=== PATIENT | female | born 1990 | race Caucasian/White ===

== ENCOUNTER 2025-02-18 15:59 | Emergency (ER) | payer BC, SELFPAY ==
[2025-02-18 16:01] VITALS: BP 131/80; PULSE 93; RESP 16; TEMP 37.1; O2SAT 99; BMI 27.7
--- NOTE | 2025-02-18 16:21 | EDS_ITS ---
HPI History of Present Illness Chief Complaint: General Illness Detail of Chief Complaint: Temperature 100 ?F, and UTI symptoms Informant: patient Onset/Context/Timing Onset: Today Context: Sudden Onset Timing: Intermittent Quality: Chills this morning, temperature 100.0 ?F and urinary symptoms Location: Current Severity: Mild Maximum Severity: Moderate Worsened by: Urination Relieved by: Nothing Associated Symptoms Associated Symptoms: Headache and nausea Narrative Narrative: Patient is a 34-year-old Ab2 (spontaneous) female who is 36 weeks gestation and presents because of temperature of 100.0 ?F. She took Tylenol which alleviated her fever however she still complains of headache. She does endorse frequency compared to normal, dysuria and urgency. She has not noted any blood in her urine. She denies back or flank pain. She has had no vomiting. Her OB is affiliated with the [facility]. Patient has no antibiotic allergies. She has no significant past medical history. Prior similar symptoms: No Recent Illness/Hospitalization: No PFSH PFSH Home Medications ?Medication ?Instructions ?Recorded ?Last Taken ?Type aspirin 81 mg tablet,delayed 81 mg PO DAILY 02/18/25 U nknown History release cephalexin 500 mg capsule 500 mg PO Q6 #40 CAPSULES Unknown Rx Allergy/AdvReac Type Severity Reaction Status Date / Time No Known Allergies Allergy Verified 02/18/25 16:03 [facility] ED Constitutional Constitutional ED: Reports chills, fever(s), sweats and other Details: Chills this morning prior to elevated temperature. ; Denies subjective or weight loss Eyes Eyes: Denies blurry vision or change in vision Cardiovascular Cardiovascular: Denies chest pain or palpitations Respiratory/Chest Respiratory/Chest: Denies cough, dyspnea or dyspnea on exertion Gastrointestinal Gastrointestinal: Reports abdominal pain and nausea; Denies constipation, diarrhea, melena or vomiting Genitourinary Genitourinary ED: Reports dysuria and urinary frequency; Denies hematuria Musculoskeletal Musculoskeletal: Denies arthralgias, back pain or myalgias Hematologic/Lymphatic Hematologic/Lymphatic: Reports systems reviewed and no addt'l complaints, except as documented EXAM Physical Exam Const Vital Signs: 02/18/25 16:00 02/18/25 16:01 Temperature 98.8 F Temperature Source Oral Pulse Rate 93 Respiratory Rate 16 Respiratory Effort Normal Non-Labored Respiratory Pattern Normal Blood Pressure 131/80 H Blood Pressure Mean 97 Pulse Ox 99 Oxygen Delivery Method Room Air Positive well nourished and well developed General Appearance ED: well developed and NAD; Negative for cyanotic, diaphoretic or pallor HEENT Reports moist mucous membranes HEENT Narrative: Head is atraumatic normocephalic. Ears normal. Nares patent Eyes PERRL and EOMs intact bilaterally General Eye ED: Negative for pale conjunctiva or scleral icterus Neck no lymphadenopathy, supple and no JVD Resp normal respiratory effort and clear to auscultation bilaterally Cardio regular rate, regular rhythm, S1 normal heart sound, S2 normal heart sound and no murmurs GI normal to inspection, nondistended, normoactive bowel sounds, non-distended and no masses; Negative for non-tender or hepatosplenomegaly Auscultation: normoactive bowel sounds Palpation: soft and tender suprapubic Back/Spine no CVA tenderness Extremity normal to inspection Neuro oriented x3 and CN's II-XII intact bilaterally Sensorium / Orientation: alert Psych mental status grossly normal Skin no rashes or lesions noted, no wounds and skin turgor normal General Skin Exam: Negative for jaundice or pallor MDM MDM MDM Narrative Medical decision making narrative: Patient with urinary symptoms. UA was obtained. Since he is we will obtain urine culture. Blood work was obtained to assess white count differential and if there is any endorgan dysfunction. Will contact her OB if she does have an infection since she is 36 weeks gestation. Lab Data Labs: Laboratory Results - last 24 hr 02/18/25 02/18/25 16:18 16:40 WBC 8.3 RBC 3.85 L Hgb 12.3 Hct 34.8 L MCV 90.4 MCH 31.9 MCHC 35.3 RDW Std Deviation 40.9 RDW Coeff of Pasha 12.6 Plt Count 241 MPV 9.3 Immature Gran % (Auto) 0.500 Neut % (Auto) 84.7 H Lymph % (Auto) 7.2 L Rice % (Auto) 7.3 Eos % (Auto) 0.1 Baso % (Auto) 0.2 Absolute Neuts (auto) 7.0 Absolute Lymphs (auto) 0.59 L Nucleated RBC % 0 Sodium 133 Potassium 4.1 Chloride 104 Carbon Dioxide 16.7 L Anion Gap 13 BUN 19 Creatinine 0.67 L Estim Creat Clear Calc 105.49 Est GFR (MDRD) Non-Af 116 BUN/Creatinine Ratio 28.5 H Glucose 109 H Calcium 8.9 Total Bilirubin 1.05 AST 35 H ALT 23 Alkaline Phosphatase 134 H Total Protein 6.1 Albumin 3.2 L Globulin 2.9 Albumin/Globulin Ratio 1.1 Urine Color Yellow Urine Clarity Cloudy Urine pH 6.0 Ur Specific [place] 1.025 Urine Protein 30 H Urine Glucose (UA) Normal Urine Ketones 15 H Urine Occult Blood Negative Urine Nitrite Negative Urine Bilirubin Negative Urine Urobilinogen Normal Ur Leukocyte Esterase Negative Urine RBC 0-5 SEEN Urine WBC 0-5 SEEN Ur Squamous Epith Cells 0-5 SEEN Calcium Oxalate Crystal 1+ Amorphous Sediment 1+ Urine Bacteria 2+ Urine Mucus 0 SEEN Treatment and Re-Evaluation :: Patient was informed of results. She was discharged prescription for cephalexin. She was instructed follow-up with her doctor if no improvement in 48 hours. Discharge Plan Triage Chief Complaint: General Illness ED Provider: David Moraes Dx/Rx/DC Orders Clinical Impression: Complicated urinary tract infection, Third trimester , Elevated blood- pressure reading without diagnosis of hypertension Instructions: ED Urinary Retention, Female Prescriptions: New cephalexin 500 mg capsule 500 mg PO Q6 Qty: 40 0RF No Action aspirin 81 mg tablet,delayed release (DR/EC) 81 mg PO DAILY Primary Care Provider: Care Physician,No Primary Referrals: Jocelyn Pierce MD [Med Staff - Active Staff] - 3-5 Days Care Physician,No Primary [Primary Care Provider] - Print Language: Turkmen Disposition Disposition: Home, Self Care
[2025-02-18 16:40] LABS: Hematocrit 34.8 % (37-47); Hemoglobin 12.3 g/dL (12.0-15.0); Immature Granulocytes Count 0.040 X10^3/uL (0.0-0.0); Mean Corp Hgb Conc 35.3 g/dL (32-36); Mean Corpuscular Volume 90.4 fL (81-99); Mean Platelet Vol. 9.3 fl (6.2-12.0); NRBC Flagged by Analyzer 0 % (0-5); POSITIVE DIFFERENTIAL YES; Platelet Count 241 K/mm3 (150-450); RBC Distribution Width CV 12.6 % (11.6-14.6); RBC Distribution Width SD 40.9 fl (35.1-43.9); Red Blood Count 3.85 M/mm3 (4.2-5.4); White Blood Count 8.3 K/mm3 (4.4-11.0)
[2025-02-18 16:48] LABS: Mucous, Urine 0 SEEN /hpf (<or=2+)
[2025-02-18 16:57] LABS: Color, Urine Yellow (Yellow); Glucose, Dipstick Normal (Normal); Ketone-Dipstick 15 mg/dl (Negative); Leukocyte Esterase-Dipstick Negative /ul (Negative); Nitrite-Dipstick Negative (Negative); Occult Blood-Urine Negative /ul (Negative); Protein-Dipstick 30 mg/dl (Negative); Specific Gravity, Urine 1.025 (1.002-1.030); Urine Bilirubin Dipstick Negative (Negative)
[2025-02-18 17:22] LABS: AST(SGOT) 35 U/L (<=31); Alanine Aminotransfer ALT/SGPT 23 U/L (<=34); Albumin, Serum 3.2 g/dL (3.5-5.0); Alkaline Phosphatase 134 U/L (35-104); Anion Gap 13 (5-15); BUN 19 mg/dL (4-19); BUN/Creat Ratio 28.5 RATIO (10-20); Calcium,Total 8.9 mg/dL (7.6-11.0); Carbon Dioxide 16.7 mmol/L (21.0-32.0); Chloride 104 mmol/L (98-108); Estimated Creatinine Clearance 105.49 ml/min (50-250); Globulin 2.9 g/dL (2.2-4.2); Glucose 109 mg/dL (70-99); Potassium 4.1 mmol/L (3.3-5.1)
[2025-02-18 17:51] LABS: Squamous Epithelial Cells - UA 0-5 SEEN /hpf (5-10)
[2025-02-18 17:53] LABS: Calcium Oxalate Crystals Ur 1+ /hpf (<or=2+); Red Blood Cells-Urine 0-5 SEEN /hpf (0-5)
[2025-02-18 18:00] VITALS: BP 112/70; PULSE 88; O2SAT 100
[2025-02-18 18:25] VITALS: BP 112/70; PULSE 88; RESP 18; TEMP 36.8; O2SAT 100
== END 2025-02-18 18:34 | disposition home or self-care (01) ==
PROVIDERS: Emergency Provider Emergency Medicine; Visit Provider Emergency Medicine
DX: O23.43 Unspecified infection of urinary tract in pregnancy, third trimester (principal); O99.891 Other specified diseases and conditions complicating pregnancy; R03.0 Elevated blood-pressure reading, without diagnosis of hypertension; Z3A.36 36 weeks gestation of pregnancy
CPT/HCPCS: 80053; 81001; 85025; 87086; 87088; 99283; A4216

== ENCOUNTER 2025-03-11 19:03 | Inpatient (IN) | payer BC, SELFPAY ==
[2025-03-11 19:17] VITALS: BMI 27.5
--- NOTE | 2025-03-11 19:20 | PCM.HP.OB ---
HPI - General General Date of Admission: 03/11/25 HPI Narrative VALERIE TESFAYE, is a 34 F at 39 weeks gestation who presents for scheduled induction of labor for result of ART, AMA, and GDM A1. Maternal Data Information ALLI Calculator Estimated Delivery Date Method Current WG Current Estimate 03/18/25 Manual 39w 0d PFSH PFSH Home Medications ?Medication ?Instructions ?Recorded ?Last Taken ?Type aspirin 81 mg tablet,delayed 81 mg PO DAILY iron supplement 02/18/25 03/11/25 08:00 History release cephalexin 500 mg capsule 500 mg PO Q6 na #40 CAPSULES 02/18/25 Unknown Rx vitamin#30 30 mg iron-10 cap PO 03/11/25 03/11/25 08:00 History mg iron-folic acid 1 mg-omg3 capsule Allergy/AdvReac Type Severity Reaction Status Date / Time No Known Allergies Allergy Verified 03/11/25 19:46 Social History Smoking Status: Never smoker ROS Eyes Eyes: Denies blurry vision, change in vision or spots in vision ENT HEENT: Denies dizziness or headache(s) Cardiovascular Cardiovascular: Denies abdominal pain, chest pain or dyspnea Respiratory/Chest Respiratory/Chest: Denies cough, dyspnea, shortness of breath at rest or shortness of breath with exertion Gastrointestinal Gastrointestinal: Denies abdominal pain, diarrhea or vomiting Genitourinary Genitourinary: Denies change in urinary stream, difficulty urinating or dysuria Musculoskeletal Musculoskeletal: Reports none Integumentary Integumentary: Denies rash Neurologic Neurologic: Denies dizziness, headache(s), memory loss or weakness Psychiatric Psychiatric: Reports none Vital Signs Vital Signs Vital Signs: Weight Weight: 150 lb 8 oz Body Mass Index (BMI) 27.5 Physical Exam Const alert, oriented x3 and no apparent distress General Appearance: cooperative Orientation / Consciousness: awake Exam Limitations: no limitations HEENT normocephalic Head and Scalp: normal to inspection Eyes General Eye: normal appearance of both eyes Neck full ROM and no lymphadenopathy Lymph Lymphatic: no lymphadenopathy noted Chest inspection of chest normal Resp normal respiratory effort, normal air movement and clear to auscultation bilaterally Effort and Inspection: able to speak in complete sentences and symmetric chest movement Cardio regular rate and regular rhythm GI normal to inspection, nondistended, normoactive bowel sounds Manual OB Exam: presentation cephalic Back/Spine normal ROM Extremity full ROM and no calf tenderness Skin no rashes or lesions noted General Skin Exam: no breakdown Neuro oriented x3 and CN's II-XII intact bilaterally Psych mental status grossly normal and thought process normal Labs Labs Labs: Hct 34.8 % (37-47) L Hgb 12.3 g/dL (12.0-15.0) Assessment & Plan (1) resulting from assisted reproductive technology (ART): (2) 39 weeks gestation of : (3) GDM, class A1: (4) Rh negative status during : (5) AMA (advanced maternal age) multigravida 35+: PLAN: Plan CE FT/thick/high Cytotec 25 mcg PO every 4 hours x 6 doses total GBS negative Discussed plan of care with patient and - questions answered Dr. Pierce notified of admission and is collaborating physician
[2025-03-11 19:31] VITALS: BP 131/90; PULSE 79
[2025-03-11 19:58] VITALS: RESP 17; TEMP 36.3
[2025-03-11 20:14] LABS: Hematocrit 34.9 % (37-47); Hemoglobin 12.1 g/dL (12.0-15.0); Immature Granulocytes Count 0.020 X10^3/uL (0.0-0.0); Mean Corp Hgb Conc 34.7 g/dL (32-36); Mean Corpuscular Volume 90.9 fL (81-99); Mean Platelet Vol. 9.8 fl (6.2-12.0); NRBC Flagged by Analyzer 0 % (0-5); Platelet Count 244 K/mm3 (150-450); RBC Distribution Width CV 12.6 % (11.6-14.6); RBC Distribution Width SD 41.1 fl (35.1-43.9); Red Blood Count 3.84 M/mm3 (4.2-5.4); White Blood Count 8.4 K/mm3 (4.4-11.0)
[2025-03-11 21:18] LABS: Syphilis Antibodies Nonreactive (Nonreactive)
[2025-03-11 23:49] VITALS: BP 163/98; PULSE 60
[2025-03-11 23:50] VITALS: BP 149/83; PULSE 67; RESP 16; TEMP 36.4
[2025-03-12] VITALS (68 sets, daily range): BP systolic 114–159; BP diastolic 58–97; PULSE 59–245; RESP 16–18; TEMP 36.4–37.3; O2SAT 78–100
[2025-03-12 00:32] LABS: Barbiturate Urine NEGATIVE (< 200 ng/mL); Benzodiazepine Urine NEGATIVE (< 200 ng/mL); PCP Urine NEGATIVE (< 25 ng/mL); THC Urine NEGATIVE (< 50 ng/mL)
--- NOTE | 2025-03-12 06:30 | PCM.PN.CNM ---
Subjective Subjective Patient awake and did not get much rest during the night. Denies pain or feeling contractions. Objective Data Objective Data Vital Signs: Vital Signs Temp Pulse Resp BP 97.6 F L 67 17 137/90 H 03/12/25 04:06 03/12/25 04:06 03/12/25 04:06 03/12/25 04:06 Weight: 150 lb 8 oz Body Mass Index (BMI) 27.5 Lab / Micro Data 03/11/25 19:41 Labs: Laboratory Results - last 24 hr 03/11/25 19:41: WBC 8.4, RBC 3.84 L, Hgb 12.1, Hct 34.9 L, MCV 90.9, MCH 31.5, MCHC 34.7, RDW Std Deviation 41.1, RDW Coeff of Pasha 12.6, Plt Count 244, MPV 9.8, Immature Gran % (Auto) 0.200, Neut % (Auto) 68.8, Lymph % (Auto) 21.1, [place] % (Auto) 8.6, Eos % (Auto) 1.1, Baso % (Auto) 0.2, Absolute Neuts (auto) 5.8, Absolute Lymphs (auto) 1.77, Nucleated RBC % 0 03/11/25 19:57: POC Glucose 102 03/11/25 20:25: Syphilis Total Ab Nonreactive, Blood Type B NEGATIVE, Antibody Screen NEGATIVE 03/11/25 20:49: POC Glucose 80 03/11/25 21:50: POC Glucose 78 03/11/25 23:50: Urine Opiates Screen NEGATIVE, U Buprenorphine Qual NEGATIVE, Ur Oxycodone Screen NEGATIVE, Urine Methadone Screen NEGATIVE, Urine Fentanyl Screen NEGATIVE, Ur Barbiturates Screen NEGATIVE, Ur Phencyclidine Scrn NEGATIVE, Ur Amphetamines Screen NEGATIVE, U Benzodiazepines Scrn NEGATIVE, Urine Cocaine Screen NEGATIVE, U Cannabinoids Screen NEGATIVE 03/12/25 01:06: POC Glucose 82 03/12/25 04:47: POC Glucose 80 Assessment & Plan (1) AMA (advanced maternal age) multigravida 35+: (2) GDM, class A1: (3) Rh negative status during : (4) 39 weeks gestation of : (5) resulting from assisted reproductive technology (ART): PLAN: Plan CE 0.5/40/-3 Cytotec #3 at 0530 NST reactive, Cat. 1 tracing Anticipate placement of huffman bulb Patient to eat light breakfast Pain medications if indicated
[2025-03-12] MEDS: 0.9% Normal Saline Single 100 ML IV.SOLN. INTRA-UTER (07:50)
[2025-03-12] MEDS: Oxytocin 15 Units/NS 250ml 15 UNITS/250 ML IV.SOLN 2 UNITS IV (09:36)
[2025-03-12] MEDS: Lactated Ringers 1,000 ML 50 ML IV (09:36)
[2025-03-12] MEDS: Lactated Ringers 1,000 ML 999 ML IV (12:25)
--- NOTE | 2025-03-12 12:48 | PCM.PN.OB ---
Subjective Subjective Comfortable in bed with epidural Objective Data Objective Data Vital Signs: Vital Signs Temp Pulse Resp BP Pulse Ox 97.9 F 83 16 149/97 H 98 03/12/25 11:01 03/12/25 12:47 03/12/25 11:01 03/12/25 12:47 03/12/25 12:44 Weight: 150 lb 8 oz Body Mass Index (BMI) 27.5 Intake & Output: Intake and Output for Last 24 Hours 03/10/25 03/11/25 03/12/25 23:59 23:59 23:59 Intake Total 1.07 / 1.07 Balance 1.07 / 1.07 Lab / Micro Data 03/11/25 19:41 Labs: Laboratory Results - last 24 hr 03/11/25 19:41: WBC 8.4, RBC 3.84 L, Hgb 12.1, Hct 34.9 L, MCV 90.9, MCH 31.5, MCHC 34.7, RDW Std Deviation 41.1, RDW Coeff of Pasha 12.6, Plt Count 244, MPV 9.8, Immature Gran % (Auto) 0.200, Neut % (Auto) 68.8, Lymph % (Auto) 21.1, [place] % (Auto) 8.6, Eos % (Auto) 1.1, Baso % (Auto) 0.2, Absolute Neuts (auto) 5.8, Absolute Lymphs (auto) 1.77, Nucleated RBC % 0 03/11/25 19:57: POC Glucose 102 03/11/25 20:25: Syphilis Total Ab Nonreactive, Blood Type B NEGATIVE, Antibody Screen NEGATIVE 03/11/25 20:49: POC Glucose 80 03/11/25 21:50: POC Glucose 78 03/11/25 23:50: Urine Opiates Screen NEGATIVE, U Buprenorphine Qual NEGATIVE, Ur Oxycodone Screen NEGATIVE, Urine Methadone Screen NEGATIVE, Urine Fentanyl Screen NEGATIVE, Ur Barbiturates Screen NEGATIVE, Ur Phencyclidine Scrn NEGATIVE, Ur Amphetamines Screen NEGATIVE, U Benzodiazepines Scrn NEGATIVE, Urine Cocaine Screen NEGATIVE, U Cannabinoids Screen NEGATIVE 03/12/25 01:06: POC Glucose 82 03/12/25 04:47: POC Glucose 80 03/12/25 09:19: POC Glucose 92 Physical Exam Manual OB Exam: presentation cephalic, dilated 5, effaced 70, station -1 and other AROM for small amount of clear fluid NST FHR Rate Baby A Baseline: 145 Variability:: Moderate Accelerations:: 15 x 15 Decelerations:: None FHR Category:: Category I Uterine Activity:: Every 3 minutes Assessment & Plan (1) AMA (advanced maternal age) multigravida 35+: (2) GDM, class A1: (3) 39 weeks gestation of : (4) resulting from assisted reproductive technology (ART): PLAN: Plan 1) Epidural for pain management 2) Continuous EFM 3) Pitocin per protocol 4) AROM 5) notified of labor above assessment and plan of care.
[2025-03-12] MEDS: fentaNYL-bupivacaine (epidural) 100 ML BAG EPIDURAL ×4 (13:00→22:38)
[2025-03-12] MEDS: Lactated Ringers 1,000 ML 200 ML IV ×2 (17:26→22:38)
[2025-03-13] VITALS (53 sets, daily range): BP systolic 120–173; BP diastolic 60–89; PULSE 69–142; RESP 16; TEMP 36.4–37.6; O2SAT 96–100
[2025-03-13] MEDS: 0.9% Saline Lock 10 ML Syringe IV ×2 (02:05→14:12)
[2025-03-13] MEDS: LACTATED RINGERS 500 ML 999 ML IV (02:08)
[2025-03-13] MEDS: Oxytocin 15 Units/NS 250ml 15 UNITS/250 ML IV.SOLN 334 UNITS IV (03:28)
--- NOTE | 2025-03-13 03:46 | EX.PCM.OBVAG ---
Assessment & Plan (1) Vaginal delivery: (2) First degree perineal laceration: Maternal Data Information ALLI Calculator Estimated Delivery Date Method Current WG Current Estimate 03/18/25 Manual 39w 2d Vaginal Delivery Maternal Presentation Maternal Presentation: Medically Indicated Induction Type of Induction: Pitocin and Raymundo Bulb Vaginal Delivery Information Procedure Performed: Spontaneous Vaginal Delivery Surgeon/Practitioner: abdi, Date of Procedure: 03/13/25 Pre-Procedure Diagnosis: Induction of labor Post-Procedure Diagnosis: , first degree perineal laceration Type of anesthesia: Epidural Estimated Blood Loss: 700 ml Time of Delivery: 03:20 Findings Description of procedure: Progressed to complete with urge to push. Epidural for pain management. of viable female over frist degree perineal laceration . APGARS 8,9 respectively. Infant head delivered with body immediately forthcoming. Placed on maternal abdomen, strong cry. Mouth and nares suctioned for secretions. Pitocin started for active 3rd stage management. Cord doubly clamped and cut by FOB after pulsations ceased, delayed cord clamping. Placenta delivered intact via chung, 3 vessel cord intact. Perineum inspected and revealed first degree perineal laceration. Repaired with 3.0 vicryl rapide and epidural. Fundus boggy with uterine atony, bimanual compression, Methergine and cytotec given, fundus firm and hemostasis achieved. EBL 700ml. Vaginal sweep completed by me, sponge and instrument correct. Mom and baby stable, planning to breastfeed. Family bonding well. notified of delivery. Presentation: Vertex and VICTORIA Amniotic Membrane Rupture Type: Artificial Amniotic Fluid Description: Clear Placental Delivery Description: Spontaneous Placenta Disposition: [facility] Specimen collected: No Cord Vessel Description: 3 Vessels Cord Entanglement: None A Gender: Female (1 minute): 8 (5 minute): 9 Delayed Cord Clamping: Yes Aviation Project Engineer guillotine trimmer: No Post Vaginal Deli Medications given after delivery: IV Pitocin, IM Methergin and Other (cytotec) Episiotomy Description: None Laceration: Perineal Extension/lac and 1st degree Complication Complications: Yes Complication Details: Uterine atony
[2025-03-13] MEDS: Oxytocin 15 Units/NS 250ml 15 UNITS/250 ML IV.SOLN 83 UNITS IV (05:12)
[2025-03-13] MEDS: Senna/Docusate Sodium 1 Tablet PO (09:44)
[2025-03-13] MEDS: Rho(D) Immune Globulin 300 MCG (1500 Unit) Syringe IV (13:59)
--- NOTE | 2025-03-14 05:13 | DCINST_ITS ---
Discharge Instructions DC O2, CPAP, BIPAP needs Home O2 Discharge instructions: No Dressing / Incision May resume sexual activity in: 6-8 weeks Dressing / Incision Call your doctor if you observe: Fever of 101 or Higher, Inability to urinate, Using more than 1 pad per hour and Uncontrolled pain Follow Up Care Please Follow Up With: Julianne Ennis CNM When: 1 week post and again at 6 weeks post . [phone]: if you had PREECLAMPSIA or other Blood pressure concerns in labor you should be seen in 48-72 hours in the office. Test Results: Test results from this visit will be discussed in further detail at your follow- up appointment, if applicable. Discharge Plan Admission Admit Date/Time: 03/11/25 19:03 Attending Provider: Maci Esquivel Primary Care Provider: Care Physician,Maryann Primary Discharge Orders/Prescriptions Prescriptions: No Action PNV #[id number] 30 mg iron-10 mg iron-1 mg capsule PO ferrous sulfate PO aspirin 81 mg tablet,delayed release (DR/EC) 81 mg PO DAILY cephalexin 500 mg capsule 500 mg PO Q6 Qty: 40 0RF Referrals / Follow Up: Care Physician,No Primary [Primary Care Provider] -
--- NOTE | 2025-03-14 05:13 | PCM.PROGNOTE ---
Subjective Subjective patient seen at bedside, doing well. Patient reports good pain control. lochia mild. Objective Data Objective Data Vital Signs: Vital Signs Temp Pulse Resp BP Pulse Ox O2 Del Method 97.9 F 80 16 126/68 H 98 Room Air 03/13/25 23:27 03/13/25 23:28 03/13/25 23:27 03/13/25 23:28 03/13/25 13:46 03/13/25 23:27 Oxygen Delivery Method Room Air Weight: 68.266 kg Body Mass Index (BMI) 27.5 Intake & Output: Intake and Output for Last 24 Hours 03/12/25 03/13/25 03/14/25 23:59 23:59 23:59 Intake Total 3117.14 / 3117.14 2060.33 / 2060.33 Output Total 1450 / 1450 1850 / 1850 Balance 1667.14 / 1667.14 210.33 / 210.33 Lab / Micro Data 03/11/25 19:41 Labs: Laboratory Results - last 24 hr 03/12/25 23:38: POC Glucose 97 03/13/25 00:46: POC Glucose 104 03/13/25 02:03: POC Glucose 86 03/13/25 03:48: POC Glucose 106 03/13/25 06:00: Screen NEGATIVE, Baby's Blood Type B POSITIVE, Baby's GONZALO NEGATIVE Physical Exam Narrative Abd: fundus firm. Const alert and oriented x3 General Appearance: cooperative HEENT normocephalic Neck General: normal visual inspection GI soft to palpation and non-distended GI Narrative: Fundus firm Extremity normal to inspection and no calf tenderness Skin no rashes or lesions noted Neuro oriented x3 and CN's II-XII intact bilaterally Psych mental status grossly normal Assessment & Plan Assessment/Plan (1) Vaginal delivery: (2) First degree perineal laceration: (3) GDM, class A1: (4) Rh negative status during : PLAN: Plan PPD#1 , Doing well Routine care pain mgmt ambulation dc home today
--- NOTE | 2025-03-14 05:14 | DCINST_ITS ---
Discharge Instructions DC O2, CPAP, BIPAP needs Home O2 Discharge instructions: No Dressing / Incision May resume sexual activity in: 6-8 weeks Dressing / Incision Call your doctor if you observe: Fever of 101 or Higher, Inability to urinate, Using more than 1 pad per hour and Uncontrolled pain Follow Up Care Please Follow Up With: Julianne Ennis CNM When: 1 week post and again at 6 weeks post . [phone]: if you had PREECLAMPSIA or other Blood pressure concerns in labor you should be seen in 48-72 hours in the office. Test Results: Test results from this visit will be discussed in further detail at your follow- up appointment, if applicable. Discharge Plan Admission Admit Date/Time: 03/11/25 19:03 Attending Provider: Maci Esquivel Primary Care Provider: Care Physician,Maryann Primary Discharge Orders/Prescriptions Prescriptions: New acetaminophen 500 mg Tablet 1,000 mg PO Q6H PRN PRN (Reason: Pain 1-10 Or Fever) Qty: 0 0RF Continued PNV #[id number] [id number] 30 mg iron-10 mg iron-1 mg capsule PO ferrous sulfate PO Discontinued aspirin 81 mg tablet,delayed release (DR/EC) 81 mg PO DAILY cephalexin 500 mg capsule 500 mg PO Q6 Qty: 40 0RF Referrals / Follow Up: Care Physician,Maryann Primary [Primary Care Provider] - Disposition Disposition (needs filled in before D/C Order can be placed): Home, Self Care
[2025-03-14 05:50] LABS: Hematocrit 24.3 % (37-47); Hemoglobin 8.5 g/dL (12.0-15.0); Immature Granulocytes Count 0.170 X10^3/uL (0.0-0.0); Mean Corp Hgb Conc 35.0 g/dL (32-36); Mean Corpuscular Volume 91.4 fL (81-99); Mean Platelet Vol. 9.3 fl (6.2-12.0); NRBC Flagged by Analyzer 0 % (0-5); Platelet Count 204 K/mm3 (150-450); RBC Distribution Width CV 12.9 % (11.6-14.6); RBC Distribution Width SD 42.0 fl (35.1-43.9); Red Blood Count 2.66 M/mm3 (4.2-5.4); White Blood Count 14.6 K/mm3 (4.4-11.0)
[2025-03-14 08:02] VITALS: BP 134/93; PULSE 77; O2SAT 99
[2025-03-14] MEDS: 0.9% Saline Lock 10 ML Syringe IV (09:01)
[2025-03-14 10:00] VITALS: BP 134/93; PULSE 72; RESP 16; TEMP 36.3; O2SAT 99
--- NOTE | 2025-03-14 12:15 | CASEMGMT ---
Social Work Assessment Labor and Delivery Unit Patient Address: [address] [place] [address] [place] [place] [address] Phone number: [phone] Date of Referral: 03/13/25 Time of Referral: 07:37 Referred By: Julianne Ennis Date of Intervention: 03/14/25 Time of Intervention: 12:15 Reason for Referral: Mental Health History obtained from: Medical records, mother of baby (MOB) and father of baby (FOB).? Household composition: MOB, FOB (Manuel Paul, age 39) and their daughter, Lori Wolf, born on 03/13/25. ?The FOB has a 10-year-old son, Kermit Paul whom the FOB has shared parenting with (50/50) who also lives in the home part-time. Patient's parent/guardian status: MOB and FOB have been together for 5 years and for 3 and a half years. ?MOB denied any previous or current issues of domestic violence and described a positive relationship with the FOB. Medical History: :3, Para, now 1. (It is unclear if is 3 or 4. Review of records list as 3 however also indicated that the MOB has had 3 SAB?s). History could be 4, para now 1. MOB received care through [facility] beginning at 8 weeks and 5 days. Visits were observed to be routine. Apgars: 8 and 9. Weight: 6lbs, 1oz. Rim Technician: Dr. Rosana Cordoba. Educational Status: MOB and FOB denied any issues with reading, writing or learning comprehension. MOB earned her Bachelor?s degree in History, Writing and Theater. FOB attended some college. Financial Status: MOB and FOB reported that their income is sufficient to meet the needs of their family at this time. MOB and FOB are both employed full-time. Supplies: MOB and FOB reported they have the supplies they need for baby at this time including but not limited to: Car seat, bassinet, crib, pack-n-play, diapers, bottles, breast pump and clothing. Childcare/Caregiver(s): MOB reported that she gets 12 weeks of FMLA and the FOB will be off the next 10-14 days. Once the MOB returns to work, the FOB will be able to provide some childcare as his work is a hybrid position and ?s maternal grandmother (MGM) and paternal grandmother (PGM) will also be providing childcare. Transportation: Both MOB and FOB are licensed drivers and have a reliable vehicle to get baby to and from all medical appointments. MOB and FOB denied any issues/barriers to transportation at this time. Programs/Agencies Involved: MOB and FOB denied and previous or current agency involvement. Children Services/Legal Issues: MOB and FOB denied any previous or current Children Service?s and/or legal involvement. Behavioral Health Issues:? Mental Health History: MOB has a history of anxiety and depression that MOB reported was related to previous loses. MOB denied being on any current medication to treat symptoms and recent anxiety was addressed during this by the MOB having more frequent doctor?s visits and scans. FOB denied any history of mental health issues. ?Substance Use History:? ?MOB used to smoke marijuana however last used 3 years ago. MOB and FOB denied any current drug or alcohol use or abuse. ?Family History:?? ?Denied? Drug Screens: 03/11/25: MOB had all negative results. was not tested. Family/Social Stressors:?? Denied. Support Systems: MOB identified her biggest support as the FOB, and both sets of parents of the MOB and FOB.? FOB also identified his siblings as a big support. ? Depression/Shaken Baby/Safe Sleeping: Business Data Analyst provided verbal and written education on PPD, risk factors for PPD, Safe Sleeping and Shaken Baby.? MOB and FOB both verbalized an understanding.? ASSESSMENT: MOB and FOB provided consent to social work visit. ?When social media marketing specialist arrived, the FOB was sitting in a chair holding and the MOB had been packing up, preparing for discharge, but then sat once social media marketing specialist arrived.? MOB and FOB were both verbally engaged and very cooperative, though at times, the MOB almost dozed off as she appeared to be very sleepy. MOB reported she was up a lot last night feeding . ?Business Data Analyst observed positive interaction between the MOB and FOB as well as towards the .? During the time the FOB was holding , the FOB was observed to be very gentle, nurturing and attentive to and at the end of the assessment when the FOB got up and handed to the MOB, the MOB was also observed to interact with in a positive manner and was also gentle, attentive and nurturing. At the end of the assessment, Business Data Analyst requested to speak with the MOB alone, which she and the FOB were both agreeable to. MOB reported feeling safe in her home and denied any previous or current domestic violence, unmanaged mental health issues either with herself or with the FOB and also denied any concerns with any additional drug or alcohol abuse either with herself or with the FOB as well as any unmanaged mantal health concerns Safe Plan of Care for infant related to substance use: Not needed PLAN: For MOB and baby to be discharged when medically ready. No other services requested or indicated. ? Alicra Nielsen, PRODUCT MANAGER MEDICAL DEVICE, FRONT OFFICE HELP
[2025-03-14 13:11] VITALS: BP 136/91; PULSE 80; RESP 16; TEMP 36.5; O2SAT 99
[2025-03-14 13:12] VITALS: BP 136/91; PULSE 77
[2025-03-14 13:13] VITALS: PULSE 82; O2SAT 100
--- NOTE | 2025-03-20 07:19 | PCM.DC.BLA ---
Discharge Summary Date of Admission: 03/11/25 Date of Discharge: 03/14/25 Summary: Patient was admitted for induction of labor. She underwent induction and had a vaginal delivery without complication. She was discharged home on day #1 Meaningful Use Info Meaningful Use Meaningful Use Diagnoses (Choose all that apply): None applicable Ischemic Stroke Statin Dosing Therapy Reference: STATIN DOSE THERAPY REFERENCE: * Patients > 75 years receive moderate or high dose statin therapy. * Patients 75 years or YOUNGER should receive HIGH intensity statin dose unless contraindicated. You will be required to document reason for non-treatment if statin daily dose does not meet guidelines. HIGH DOSE STATIN THERAPY DAILY Atorvastatin > than or = to 40 mg Rosuvastatin > than or = to 20 mg Amlodipine + Atorvastatin > than or = to 2.5/40 mg Ezetimibe + Simvastatin 10/80 mg Simvastatin 80mg Discharge Plan Admission Admit Date/Time: 03/11/25 19:03 Attending Provider: Maci Esquivel Primary Care Provider: Care Physician,No Primary Discharge Orders/Prescriptions Prescriptions: New acetaminophen 500 mg Tablet 1,000 mg PO Q6H PRN PRN (Reason: Pain 1-10 Or Fever) Qty: 0 0RF Continued PNV #[id number] 30 mg iron-10 mg iron-1 mg capsule PO ferrous sulfate PO Discontinued aspirin 81 mg tablet,delayed release (DR/EC) 81 mg PO DAILY cephalexin 500 mg capsule 500 mg PO Q6 Qty: 40 0RF Referrals / Follow Up: Care Physician,No Primary [Primary Care Provider] - Disposition Disposition (needs filled in before D/C Order can be placed): Home, Self Care
== END 2025-03-14 13:40 | disposition home or self-care (01) | DRG 807 ==
PROVIDERS: Advanced Practice Midwife; Admitting Provider Advanced Practice Midwife; Visit Provider Advanced Practice Midwife
DX: O24.429 Gestational diabetes mellitus in childbirth, unspecified control (principal); Z37.0 Single live birth; N96 Recurrent pregnancy loss; O70.0 First degree perineal laceration during delivery; O99.893 Other specified diseases and conditions complicating puerperium; Z79.82 Long term (current) use of aspirin; Z3A.39 39 weeks gestation of pregnancy; Z67.91 Unspecified blood type, Rh negative; O75.89 Other specified complications of labor and delivery
CPT/HCPCS: 59025; 59050; 80307; 82962; 85025; 85461; 86780; 86850; 86900; 86901; 90384; 99221; A4216; G0378; J2405; J2790; J2791